=== PATIENT | male | born 1955 | race Asian ===

== ENCOUNTER 2018-04-12 09:37 | Observation (INO) ==
[2018-04-12 09:47] VITALS: RESP 16
[2018-04-12] MEDS ORDERED: Sodium Chlor 0.9% Inj 500 ML IV.SIG SCH (10:00)
--- NOTE | 2018-04-12 10:05 | ED ---
HPI General Chief complaint: Hypertension Stated complaint: bp elevated since yesterday/saavedra x today Time Seen by Provider: 04/12/18 09:50 History of Present Illness HPI narrative: Patient is a 63-year-old male with history of high blood pressure , since yesterday has headache, early in the morning he had episode of chest pain at 5 AM lasted for 30 minutes and resolved spontaneously, patient also had systolic blood pressure over 220, took double dose of amlodipine, systolic blood pressure is 116 emergency room. Patient still has headache. Did not take any medications for that. He denies fever, no meningeal signs, no shortness of breath. Related Data Home Medications Medication Instructions Recorded Confirmed amlodipine 5 mg PO DAILY 04/12/18 04/12/18 Allergies Allergy/AdvReac Type Severity Reaction Status Date / Time cefepime Allergy Severe Rash Verified 04/12/18 09:47 ceftaroline fosamil Allergy Severe Rash Verified 04/12/18 09:47 Review of Systems ROS: all other systems reviewed are negative Cardiovascular Reports chest pain PMFSH Medical History Medical History Chest pain (Acute) Cyst of thyroid (Acute) HTN (hypertension) (Acute) Surgical History Surgical History H/O shoulder surgery (Acute) Social History Social History Substance History: Active Abuse Smoking Status: Never smoker How Often Do You Have a Drink Containing Alcohol: 2 to 3 times a week Recent Travel in [facility] within the Last 8 Weeks: No Recent Out of Country Travel within the Last 8 Weeks: No Exam Narrative Exam Narrative: GENERAL: 63-year-old male in no apparent distress. SKIN: Focused skin assessment warm/dry. HEAD: Atraumatic. Normocephalic. EYES: Pupils equal and round. No scleral icterus. No injection or drainage. ENT: No nasal bleeding or discharge. Mucous membranes pink and moist. NECK: Trachea midline. No JVD. CARDIOVASCULAR: Regular rate and rhythm. No murmur appreciated. RESPIRATORY: No accessory muscle use. Clear to auscultation. Breath sounds equal bilaterally. GASTROINTESTINAL: Abdomen soft, non-tender, nondistended. Hepatic and splenic margins not palpable. MUSCULOSKELETAL: No obvious deformities. No clubbing. No cyanosis. No edema. NEUROLOGICAL: Awake and alert. No obvious cranial nerve deficits. Motor grossly within normal limits. Normal speech. PSYCHIATRIC: Appropriate mood and affect; insight and judgment normal. Course Initial Documented Vital Signs Temperature 98.2 F 04/12/18 09:45 Pulse Rate 60 04/12/18 09:45 Respiratory Rate 16 04/12/18 09:45 Blood Pressure 161/84 H 04/12/18 09:45 Pulse Oximetry 99 04/12/18 09:45 Last Documented Vital Signs Temperature 98.2 F 04/12/18 09:45 Pulse Rate 60 04/12/18 09:45 Respiratory Rate 16 04/12/18 09:45 Blood Pressure 161/84 H 04/12/18 09:45 Pulse Oximetry 100 04/12/18 09:58 Medical Decision Making MDM Narrative Medical decision making narrative: 63-year-old male presented for chest pain, had high blood pressure at home. Headache resolved in the emergency room spontaneously. Cardiac workup. Reevaluation is pending. 1100:Patient is asymptomatic in the emergency room, first set of troponin is negative, EKG is normal sinus rhythm no ST elevation, otherwise blood work is within normal limits patient will be placed on observation to the chest pain center for further evaluation and treatment. Case discussed with [facility] and chest pain center. \ Medical Screen Exam Complete: Yes Emergency Medical Condition: Yes Differential Diagnosis Differential Diagnosis: Chest pain rule out ACS versus hypertensive urgency/ emergency. Lab Data Result diagrams: 04/12/18 10:06 04/12/18 10:06 Lab Results 04/12/18 04/12/18 04/12/18 Range/Units 10:06 10:06 10:06 CBC w Diff Slide review pending WBC 4.9 (4.0-11.0) th/mm3 RBC 5.80 (4.50-5.90) mil/mm3 Hgb 12.8 L (13.0-17.0) gm/dL Hct 41.4 (39.0-51.0) % MCV 71.3 L (80.0-100.0) fL MCH 22.0 L (27.0-34.0) pg MCHC 30.9 L (32.0-36.0) % RDW 14.2 (11.6-17.2) % Plt Count 244 (150-450) th/mm3 MPV 7.4 (7.0-11.0) fL Neut % (Auto) 48.8 (16.0-70.0) % Lymph % (Auto) 40.9 (9.0-44.0) % [place] % (Auto) 8.8 H (0.0-8.0) % Eos % (Auto) 1.2 (0.0-4.0) % Baso % (Auto) 0.3 (0.0-2.0) % Neut # (Auto) 2.4 (1.8-7.7) th/mm3 Lymph # (Auto) 2.0 (1.0-4.8) th/mm3 [place] # (Auto) 0.4 (0.0-0.9) th/mm3 Eos # (Auto) 0.1 (0.0-0.4) th/mm3 Baso # (Auto) 0.0 (0.0-0.2) th/mm3 WBC Differential . Diff Scan Auto diff confirmed Differential Comment . Ovalocytes 1+ H (None) PT (9.8-11.6) sec INR Ratio APTT (23.4-31.7) sec Sodium 132 L (136-145) meq/L Potassium 3.3 L (3.5-5.1) meq/L Chloride 95 L (98-107) meq/L Carbon Dioxide 29.3 (21.0-32.0) meq/L Anion Gap 8 (5-15) meq/L BUN 20 H (7-18) mg/dL Creatinine 1.20 (0.60-1.30) mg/dL Estimated GFR 61 L (>89) mL/min Random Glucose 132 H (74-106) mg/dL Calcium 8.0 L (8.5-10.1) mg/dL Total Bilirubin 0.7 (0.2-1.0) mg/dL AST 15 (15-37) U/L ALT 26 (12-78) U/L Alkaline Phosphatase 54 (45-117) U/L Troponin I Less than 0.02 L (0.02-0.05) ng/mL B-Natriuretic Peptide 9 (0-100) pg/mL Total Protein 7.5 (6.4-8.2) g/dL Albumin 3.5 (3.4-5.0) g/dL 04/12/18 Range/Units 10:06 CBC w Diff WBC (4.0-11.0) th/mm3 RBC (4.50-5.90) mil/mm3 Hgb (13.0-17.0) gm/dL Hct (39.0-51.0) % MCV (80.0-100.0) fL MCH (27.0-34.0) pg MCHC (32.0-36.0) % RDW (11.6-17.2) % Plt Count (150-450) th/mm3 MPV (7.0-11.0) fL Neut % (Auto) (16.0-70.0) % Lymph % (Auto) (9.0-44.0) % [place] % (Auto) (0.0-8.0) % Eos % (Auto) (0.0-4.0) % Baso % (Auto) (0.0-2.0) % Neut # (Auto) (1.8-7.7) th/mm3 Lymph # (Auto) (1.0-4.8) th/mm3 [place] # (Auto) (0.0-0.9) th/mm3 Eos # (Auto) (0.0-0.4) th/mm3 Baso # (Auto) (0.0-0.2) th/mm3 WBC Differential Diff Scan Differential Comment Ovalocytes (None) PT 10.1 (9.8-11.6) sec INR 1.0 Ratio APTT 24.7 (23.4-31.7) sec Sodium (136-145) meq/L Potassium (3.5-5.1) meq/L Chloride (98-107) meq/L Carbon Dioxide (21.0-32.0) meq/L Anion Gap (5-15) meq/L BUN (7-18) mg/dL Creatinine (0.60-1.30) mg/dL Estimated GFR (>89) mL/min Random Glucose (74-106) mg/dL Calcium (8.5-10.1) mg/dL Total Bilirubin (0.2-1.0) mg/dL AST (15-37) U/L ALT (12-78) U/L Alkaline Phosphatase (45-117) U/L Troponin I (0.02-0.05) ng/mL B-Natriuretic Peptide (0-100) pg/mL Total Protein (6.4-8.2) g/dL Albumin (3.4-5.0) g/dL Imaging Data Radiologist's impression: Chest X-Ray 04/12/18 09:58 CONCLUSION: Negative for acute process ECG Data EKG Prior to Arrival: No Attestation: I personally reviewed and interpreted this ECG as follows: Prior ECG tracings: available for review Interpretation: Normal sinus rhythm at rate [address] elevation, nonspecific ST changes. Discharge Plan Discharge Disposition Patient Disposition: ED Admit(ED Internal Use Only) Discharge Condition Condition: Fair Discharge Order Discharge Orders: ED Use Only Admit Order (Routine); Ordered 04/12/18 Ordered By: Tommy Francisco Physicians Team ED Provider: Tommy Francisco Primary Care Provider: Melquiades Guillen Rxs /Orders / Referrals /Forms Prescriptions: No Action amlodipine 5 mg Tablet 5 mg PO DAILY RF: 0 Status ED Status: Admitted Observation Patient
[2018-04-12 10:16] LABS: Baso % (Auto) 0.3 % (0.0-2.0); Eos # (Auto) 0.1 th/mm3 (0.0-0.4); Eos % (Auto) 1.2 % (0.0-4.0); Hematocrit 41.4 % (39.0-51.0); Hemoglobin 12.8 gm/dL (13.0-17.0); Lymph % (Auto) 40.9 % (9.0-44.0); Mean Corpuscular Volume 71.3 fL (80.0-100.0); Mean Platelet Volume 7.4 fL (7.0-11.0); Mono # (Auto) 0.4 th/mm3 (0.0-0.9); Mono % (Auto) 8.8 % (0.0-8.0); Neut # (Auto) 2.4 th/mm3 (1.8-7.7); Neut % (Auto) 48.8 % (16.0-70.0); Platelet Count 244 th/mm3 (150-450); Red Cell Distribution Width 14.2 % (11.6-17.2); White Blood Count 4.9 th/mm3 (4.0-11.0)
[2018-04-12 10:18] LABS: Mean Corpuscular HGB Conc 30.9 % (32.0-36.0)
[2018-04-12 10:29] LABS: Chloride 95 meq/L (98-107); Potassium 3.3 meq/L (3.5-5.1); Sodium 132 meq/L (136-145)
--- NOTE | 2018-04-12 10:29 | XR ---
EXAM DATE: 04/12/2018 10:14 AM EST AGE/SEX: 63 years / Male INDICATIONS: Chest pain and shortness of breath. CLINICAL DATA: This is the patient's initial encounter. Patient reports that signs and symptoms have been present for 1 day and indicates a pain score of 4/10. MEDICAL/SURGICAL HISTORY: Hypertension. None. COMPARISON: POI, XR CHEST PA AND LAT, 12/14/2014. . FINDINGS: A single AP view of the chest demonstrates the lungs to be symmetrically aerated without evidence of mass, infiltrate or effusion. The cardiomediastinal contours are unremarkable. Osseous structures a re intact. CONCLUSION: Negative for acute process Electronically signed by: Francis Mosquera MD Board Certified Radiologist 04/12/2018 10:27 AM EST
[2018-04-12 10:33] LABS: Activated Partial Thrombo Time 24.7 sec (23.4-31.7); Albumin 3.5 g/dL (3.4-5.0); Anion Gap 8 meq/L (5-15); Blood Urea Nitrogen 20 mg/dL (7-18); Carbon Dioxide 29.3 meq/L (21.0-32.0); Glucose,Random 132 mg/dL (74-106); Ovalocytes 1+; Prothrombin Time 10.1 sec (9.8-11.6)
[2018-04-12 10:36] LABS: Alanine Aminotransferase 26 U/L (12-78); Aspartate Aminotransferase 15 U/L (15-37); Glomerular Filtration Rate 61 mL/min (>89)
[2018-04-12 10:38] LABS: Total Protein 7.5 g/dL (6.4-8.2)
[2018-04-12 10:39] LABS: Alkaline Phosphatase 54 U/L (45-117)
[2018-04-12] MEDS ORDERED: Morphine Inj 4 MG/ML Vial IV.PUSH PRN (11:39)
[2018-04-12] MEDS ORDERED: Acetaminophen 500 MG Tablet PO PRN (11:39)
--- NOTE | 2018-04-12 11:53 | ECG ---
Date Performed: 04/12/2018 Time Performed: 10:15:37 PTAGE: 63 years EKG: Sinus rhythm MODERATE VOLTAGE CRITERIA FOR LVH, CONSIDER NORMAL VARIANT BORDERLINE ECG PREVIOUS TRACING : 01/08/2002 11.16 DOCTOR: Thierry Cervantes Interpretating Date/Time 04/12/2018 11:50:45
--- NOTE | 2018-04-12 13:12 | P.HP ---
History of Present Illness Primary Care Physician: Melquiades Guillen DO Chief Complaint: Elevated blood pressure, chest pain History of Present Illness: 63-year-old male with known history of hypertension who presented to hospital at the request of his primary medical doctor because of chest pain. Patient states that over the last couple days he has been experiencing uncontrolled blood pressure with his systolic pressure going up to 220s. He woke up this morning approximate 5 AM and had some midsternal chest discomfort which he described as a sharp pain without any radiation to neck, back, shoulder, arm. Denied any nausea, vomiting, diaphoresis, shortness of breath, dyspnea, lightheadedness, dizziness. Patient notices blood pressure was elevated at that time, he took his blood pressure medication with improvement of his blood pressure. Patient states that the chest pain lasted for approximately 30 minutes and resolved after he took his blood pressure medication. He called his primary medical doctor's office who recommended the patient go to the ER for further evaluation and management. Patient had evaluation in emergency department and found to have normal laboratory studies, EKG shows sinus rhythm without any abnormalities. As recommended by the ER physician the patient be observed and chest pain center for further evaluation and management. - Diagnosis (1) Accelerated hypertension (2) Chest pain Review of Systems All other systems reviewed negative except as stated in HPI Cardiovascular: Reports chest pain PMFSH - History History Provided By: Patient - Medical History Medical History: Medical History (Last Updated 04/12/18 @ 10:13 by Doris Mendiola RN) Chest pain HTN (hypertension) - Surgical History Surgical History: Surgical History (Last Updated 04/12/18 @ 13:10 by ASYA Aguila) Cyst of thyroid H/O shoulder surgery - Family History Family History: Family History (Last Updated 04/12/18 @ 13:10 by ASYA Aguila) Other No pertinent family history - Tobacco History Smoking Status: Never smoker - Alcohol History How Often Do You Have a Drink Containing Alcohol: 2 to 3 times a week - Substance Use History Substance History: Active Abuse - Substance Use Type Alcohol Status: Active Comment: pt has 1 or more drinks a day - Travel History Recent Travel in the [place] Within the Last 8 Weeks: No Recent Travel Out of the Country Within the Last 8 Weeks: No - Immunization History Tetanus Immunization: >5 Years Medications and Allergies Active Medications: Active Medications Acetaminophen (Tylenol) 500 mg PO Q4H PRN PRN Reason: HEADACHE Hydrocodone Bitart/Acetaminophen ([place] 7.5/325) 1 tab PO Q4H PRN PRN Reason: PAIN SCALE 1 TO 7 Amlodipine Besylate (Norvasc) 5 mg PO DAILY [place]ANT[place] Clonidine HCl (Catapres) 0.1 mg PO Q6H PRN PRN Reason: SBP>160, DBP>90 Morphine Sulfate (Morphine Inj) 2 mg IV.PUSH Q4H PRN PRN Reason: PAIN SCALE 8 TO 10 Nitroglycerin (Nitrostat Sl) 0.4 mg SL Q5M PRN PRN Reason: CHEST PAIN Ondansetron HCl (Zofran Inj) 4 mg IV.PUSH Q6H PRN PRN Reason: NAUSEA Sodium Chloride (Ns Flush) 2 ml IV.FLUSH UNSCH PRN PRN Reason: FLUSH AFTER USING IV ACCESS Sodium Chloride (Ns Flush) 2 ml IV.FLUSH BID CHANTELLE Sodium Chloride (Ns Flush) 2 ml IV.FLUSH PRN PRN PRN Reason: FLUSH AFTER USING IV ACCESS Allergies Allergy/AdvReac Type Severity Reaction Status Date / Time cefepime Allergy Severe Rash Verified 04/12/18 09:47 ceftaroline fosamil Allergy Severe Rash Verified 04/12/18 09:47 cephalexin [From Keflex] AdvReac Intermediate Rash Verified 04/12/18 12:20 Home Medications Medication Instructions Recorded Confirmed Type amlodipine 5 mg PO DAILY 04/12/18 04/12/18 History Exam Vital signs: Vital Signs 04/12/18 09:45 04/12/18 09:58 04/12/18 10:25 Temperature 98.2 F Pulse Rate 60 64 Respiratory Rate 16 16 Blood Pressure 161/84 H 159/83 H Pulse Oximetry 99 100 99 04/12/18 11:19 04/12/18 12:15 Temperature Pulse Rate 62 62 Respiratory Rate 16 16 Blood Pressure 139/73 125/84 Pulse Oximetry 99 Intake & Output 04/11/18 04/12/18 04/12/18 18:59 06:59 18:59 Intake Total 500 / 500 Balance 500 / 500 Weight 86.7 kg Intake: IV 500 / 500 NS Inj 500 ML @ 1000 mls/hr IV. 500 / 500 SIG BOLUS CHANTELLE Rx#:[id number] Narrative: GENERAL: Well-developed, well-nourished, in no acute distress. alert and orientated HEENT: Head is normocephalic without any lesions or masses noted. Facial features are symmetric. Eyes: Pupils equal round reactive to light. Extraocular muscles are intact. Conjunctivae were clear. Oropharyngeal: Pharynx without any erythema edema. Tongue is midline without deviation. Buccal mucosa is moist without any masses or lesions NECK: Supple without any masses. Trachea midline no deviation. No JVD, no bruits are appreciated CARDIAC: Regular rhythm, regular rate. S1/S2 are heard. No murmurs gallops or rubs. LUNGS: Clear to auscultation bilaterally. No wheeze, rhonchi or rales. No use of accessory muscles on inspiration or expiration. ABDOMEN: Soft, nontender. Nondistended. Bowel sounds heard in all 4 quadrants. No organomegaly or masses. Negative rebound, negative guarding EXTREMITIES: No edema, pulses are equal bilaterally. No cyanosis or clubbing NEUROLOGY: Mood and affect appear appropriate. Cranial nerves II through XII grossly intact. Muscle strength 5/5 in upper and lower extremities bilaterally. Deep tendon reflexes are 2+ in upper and lower extremities bilaterally. Results - Labs CBC & Chem 7: 04/12/18 10:06 04/12/18 10:06 Labs: Laboratory Results - last 24 hr 04/12/18 04/12/18 04/12/18 10:06 10:06 10:06 CBC w Diff Slide review pending WBC 4.9 RBC 5.80 Hgb 12.8 L Hct 41.4 MCV 71.3 L MCH 22.0 L MCHC 30.9 L RDW 14.2 Plt Count 244 MPV 7.4 Neut % (Auto) 48.8 Lymph % (Auto) 40.9 [place] % (Auto) 8.8 H Eos % (Auto) 1.2 Baso % (Auto) 0.3 Neut # (Auto) 2.4 Lymph # (Auto) 2.0 [place] # (Auto) 0.4 Eos # (Auto) 0.1 Baso # (Auto) 0.0 WBC Differential . Diff Scan Auto diff confirmed Differential Comment . Ovalocytes 1+ H PT INR APTT Sodium 132 L Potassium 3.3 L Chloride 95 L Carbon Dioxide 29.3 Anion Gap 8 BUN 20 H Creatinine 1.20 Estimated GFR 61 L Random Glucose 132 H Calcium 8.0 L Total Bilirubin 0.7 AST 15 ALT 26 Alkaline Phosphatase 54 Troponin I Less than 0.02 L B-Natriuretic Peptide 9 Total Protein 7.5 Albumin 3.5 04/12/18 10:06 CBC w Diff WBC RBC Hgb Hct MCV MCH MCHC RDW Plt Count MPV Neut % (Auto) Lymph % (Auto) [place] % (Auto) Eos % (Auto) Baso % (Auto) Neut # (Auto) Lymph # (Auto) [place] # (Auto) Eos # (Auto) Baso # (Auto) WBC Differential Diff Scan Differential Comment Ovalocytes PT 10.1 INR 1.0 APTT 24.7 Sodium Potassium Chloride Carbon Dioxide Anion Gap BUN Creatinine Estimated GFR Random Glucose Calcium Total Bilirubin AST ALT Alkaline Phosphatase Troponin I B-Natriuretic Peptide Total Protein Albumin - Imaging Impressions Chest X-Ray 04/12/18 09:58 CONCLUSION: Negative for acute process Caprini VTE Risk Assessment Caprini VTE Risk Assessment: No/Low Risk (score <= 1) Caprini Risk Assessment Model: Point Value = 1 Point Value = 2 Point Value = 3 Point Value = 5 Age 41-60 Minor surgery BMI > 25 kg/m2 Swollen legs Varicose veins or History of unexplained or recurrent spontaneous Oral contraceptives or hormone replacement Sepsis (< 1 month) Serious lung disease, including pneumonia (< 1 month) Abnormal pulmonary function Acute myocardial infarction Congestive heart failure (< 1 month) History of inflammatory bowel disease Medical patient at bed rest Age 61-74 Arthroscopic surgery Major open surgery (> 45 min) Laparoscopic surgery (> 45 min) Malignancy Confined to bed (> 72 hours) Immobilizing plaster cast Central venous access Age >= 75 History of VTE Family history of VTE Factor V Leiden Prothrombin [id number] Lupus anticoagulant Anticardiolipin antibodies Elevated serum homocysteine Heparin-induced thrombocytopenia Other congenital or acquired thrombophilia Stroke (< 1 month) Elective arthroplasty Hip, pelvis, or leg fracture Acute spinal cord injury (< 1 month) Prophylaxis Regimen: Total Risk Factor Score Risk Level Prophylaxis Regimen 0-1 Low Early ambulation 2 Moderate Order ONE of the following: *Sequential Compression Device (SCD) *Heparin 5000 units SQ BID 3-4 Higher Order ONE of the following medications: *Heparin 5000 units SQ TID *Enoxaparin/Lovenox 40 mg SQ daily (WT < 150 kg, CrCl > 30 mL/min) *Enoxaparin/Lovenox 30 mg SQ daily (WT < 150 kg, CrCl > 10-29 mL/min) *Enoxaparin/Lovenox 30 mg SQ BID (WT < 150 kg, CrCl > 30 mL/min) AND/OR *Sequential Compression Device (SCD) 5 or more Highest Order ONE of the following medications: *Heparin 5000 units SQ TID (Preferred with Epidurals) *Enoxaparin/Lovenox 40 mg SQ daily (WT < 150 kg, CrCl > 30 mL/min) *Enoxaparin/Lovenox 30 mg SQ daily (WT < 150 kg, CrCl > 10-29 mL/min) *Enoxaparin/Lovenox 30 mg SQ BID (WT < 150 kg, CrCl > 30 mL/min) AND *Sequential Compression Device (SCD) Assessment and Plan - Assessment (1) Accelerated hypertension Code(s): I10 - Essential (primary) hypertension Status: Acute (2) Chest pain Code(s): R07.9 - Chest pain, unspecified Status: Acute - Plan Chest pain, atypical -Patient with increased risk factors include age, male, hypertension -Patient has been ruled out for acute coronary event with serial cardiac enzymes that have remained negative -Serial EKG which reviewed by myself shows sinus rhythm without any changes -Exercise stress test was performed and indicated normal stress test without any signs of ischemia -Continue aspirin, nitroglycerin as needed -Continue monitor telemetry Accelerated hypertension -Blood pressure stable at this time -Home medication continued Hypokalemia -Replacement was performed by ER -Continue monitor replete as needed DVT prevention -Sequential compression devices Discharge Planning: Discharge home in stable condition Activity: Ad basia. Diet: Healthy heart diet Medication per medication reconciliation Follow-up with primary medical doctor in 1 week
[2018-04-12 14:10] LABS: Creatine Kinase 79 U/L (39-308)
[2018-04-12 17:18] VITALS: BP 130/84; PULSE 72; TEMP 97.7; O2SAT 98
[2018-04-13] MEDS ORDERED: amLODIPine 5 MG Tablet PO SCH (09:00)
== END 2018-04-12 18:07 | disposition home or self-care (01) ==
LOC: PHEDA 09:37 → PHED 09:37 → PHEDA 12:41 → PH3 12:50
PROVIDERS: ADMIT Hospitalist; ATTEND Hospitalist